=== PATIENT | male | born 1945 | race Caucasian/White ===

== ENCOUNTER → 2017-06-11 | Outpatient (CLI) | payer OTHER ==
[2017-06-11 07:53] LABS: BLOOD GAS BASE EXCESS -2.3 mmol/L (-2-2); BLOOD GAS CARBOXYHEMOGLOBIN 1.6 % (0-4); BLOOD GAS HCO3 21 mmol/L (22-26); BLOOD GAS METHEMOGLOBIN 1.2 % (0-2); BLOOD GAS O2 HGB SATURATION 95 % (90-100); BLOOD GAS PCO2 33 mmHG (38-42); BLOOD GAS PO2 97 mmHG (61-120); BLOOD GAS TOTAL HGB 14.2 G/DL (12.0-16.0); CRITICAL VALUE NO; DRAW SITE RT BRACHIAL; NUMBER OF ARTERIAL PUNCTURES 1; OXYGEN DEVICE RA; STAT NO; TEMP CORR TO 98.6; ULNAR PULSE Y
--- NOTE | 2017-06-13 09:07 | RSPPFT ---
DATE OF PROCEDURE: 06/11/17 COMMENTS: Spirometry shows FVC of 3.7 at 97% of predicted, FEV1 of 2.0 at 65%, FEV1/FVC ratio is decreased. Flow is decreased at FEF 25, FEF 50, FEF 75 and FEF 25-75. No significant response after bronchodilator treatment. Lung volumes show residual volume normal. TLC is normal. Diffusion capacity is decreased. Flow volume loop indicates an obstructive pattern. Room air arterial blood gases show pH of 7.43, PCO2 of 33, PO2 of 97, BiCarb of 21, O2 Saturation at 95%. 6-minute walk test shows no de-saturation. IMPRESSION: 1. Moderately severe obstructive lung disease. 2. No response after bronchodilator treatment. 3. Normal lung volumes. 4. Decreased diffusion capacity. 5. Blood gases show normal oxygenation 6. Walk test shows no de-saturation with ambulation.
== END ==
LOC: PHRSP 07:27
PROVIDERS: ATTEND Internal Medicine
DX: J44.9 Chronic obstructive pulmonary disease, unspecified (principal)
CPT/HCPCS: 36600; 82805; 94060; 94620; 94726; 94729